=== PATIENT | female | born 1975 ===

== ENCOUNTER → 2017-11-05 | Emergency (ER) | payer OTHER ==
[~2017-11-05] VITALS: Ht 157.5 cm; Wt 49.9 kg
[~2017-11-05] MED LIST: AMOX1TAB12 PO; MOTRIN800 MG PO; PERCOCET 5/3251 TAB PO; TORADOL60 MG IM
== END | disposition home or self-care (01) ==
LOC: ER 10:23
DX: M25.562 Pain in left knee (principal)